=== PATIENT | male | born 1985 | race Hispanic/Latino ===

== ENCOUNTER 2016-08-03 17:09 | Emergency (ER) | payer MEDICAID ==
[2016-08-03 17:14] VITALS: BP 109/66
--- NOTE | 2016-08-03 17:58 | Emergency Department Report ---
ED Back Pain/Injury HPI - General Chief Complaint: Back Pain/Injury Stated Complaint: BACK PAIN Time Seen by Provider: 08/03/16 17:24 Source: patient Limitations: No Limitations - History of Present Illness Initial Comments: Patient comes in the ER today with complaints of left sided lower back pain after trying to pick an old type TV that was in the street in front of his house today. Patient states that he reached out to get it and lifted in a twisting motion and felt sudden pain in his left lower back. Patient states this happened approximately 4 hours ago and that the pain persists. Patient denies any loss of bowel or urine control. Patient denies any radiating pain into his legs. Patient states that he felt sudden pain and thinks that he pulled a muscle. Patient did take some ibuprofen prior to arrival with minimal improvements. MD Complaint: back pain -: Sudden - Related Data Previous Rx's Medication Instructions Recorded Last Taken Type Albuterol *Only Ed* [Proventil 2.5 mg IH Q4H PRN #1 box 03/03/15 Unknown Rx 0.5% NEBS] Cyclobenzaprine [Flexeril] 10 mg PO TID PRN #21 tablet 08/03/16 Unknown Rx Naproxen [Naprosyn TAB] 500 mg PO BID #20 tablet 08/03/16 Unknown Rx traMADol [Ultram] 50 mg PO Q4HR PRN #18 tablet 08/03/16 Unknown Rx Allergies Allergy/AdvReac Type Severity Reaction Status Date / Time No Known Allergies Allergy Unverified 03/03/15 14:53 ED Review of Systems ROS: Stated complaint: BACK PAIN Other details as noted in HPI Constitutional: denies: chills, fever Eyes: denies: eye pain, eye discharge, vision change ENT: denies: ear pain, throat pain Respiratory: denies: cough, shortness of breath, wheezing Cardiovascular: denies: chest pain, palpitations Endocrine: no symptoms reported Gastrointestinal: denies: abdominal pain, nausea, diarrhea Genitourinary: denies: urgency, dysuria Musculoskeletal: back pain, myalgia. denies: joint swelling, arthralgia Skin: denies: rash, lesions Neurological: denies: headache, weakness, paresthesias Psychiatric: denies: anxiety, depression Hematological/Lymphatic: denies: easy bleeding, easy bruising ED Past Medical Hx - Past Medical History Previous Medical History?: No Additional medical history: COPD-borderline - Surgical History Past Surgical History?: No - Social History Smoking Status: Never Smoker Substance Use Type: None - Medications Home Medications: Home Medications Medication Instructions Recorded Confirmed Last Taken Type Albuterol *Only Ed* [Proventil 2.5 mg IH Q4H PRN #1 box 03/03/15 Unknown Rx 0.5% NEBS] Cyclobenzaprine [Flexeril] 10 mg PO TID PRN #21 tablet 08/03/16 Unknown Rx Naproxen [Naprosyn TAB] 500 mg PO BID #20 tablet 08/03/16 Unknown Rx traMADol [Ultram] 50 mg PO Q4HR PRN #18 tablet 08/03/16 Unknown Rx ED Physical Exam - General Limitations: No Limitations General appearance: alert, in no apparent distress - Head Head exam: Present: atraumatic, normocephalic - Eye Eye exam: Present: normal appearance - ENT ENT exam: Present: mucous membranes moist - Neck Neck exam: Present: normal inspection - Respiratory Respiratory exam: Present: normal lung sounds bilaterally. Absent: respiratory distress - Cardiovascular Cardiovascular Exam: Present: regular rate, normal rhythm. Absent: systolic murmur, diastolic murmur, rubs, gallop - GI/Abdominal GI/Abdominal exam: Present: soft, normal bowel sounds. Absent: distended, tenderness - Rectal Rectal exam: Present: deferred - Extremities Exam Extremities exam: Present: normal inspection - Back Exam Back exam: Present: normal inspection, full ROM, tenderness (left lower muscle mass swelling as well as tenderness noted to paraspinal muscles), muscle spasm, paraspinal tenderness, other (negative straight leg raise bilaterally). Absent : CVA tenderness (R), CVA tenderness (L), vertebral tenderness - Neurological Exam Neurological exam: Present: alert, oriented X3, CN II-XII intact, normal gait, reflexes normal. Absent: motor sensory deficit - Psychiatric Psychiatric exam: Present: normal affect, normal mood - Skin Skin exam: Present: warm, dry, intact, normal color. Absent: rash ED Course Vital Signs 08/03/16 17:12 Temperature 98.1 F Pulse Rate 59 L Respiratory 16 Rate Blood Pressure 109/66 O2 Sat by Pulse 99 Oximetry ED Medical Decision Making - Radiology Data Radiology results: image reviewed interpreted by me: X-ray results interpreted by myself. No acute bone pathology noted. No acute fracture noted. Normal alignment of vertebral bodies. No loss of disc space noted. Slight leftward malrotation of lumbar vertebrae's consistent with potential muscle spasm. - Medical Decision Making Patient is nontoxic and hemodynamically stable. X-ray of lumbar spine ordered and reviewed with the patient in room. No acute bone pathology noted on x- rays. I believe patient a lumbar muscle resulting in spasming of his muscles. I will start patient on medications appropriately and have encouraged him to limit any strenuous repetitive activity over the next few days. I will give patient referral to orthopedics for further evaluation if symptoms fail to resolve or worsen. Patient stable for discharge and patient is in agreement with treatment plan. Critical care attestation.: If time is entered above; I have spent that time in minutes in the direct care of this critically ill patient, excluding procedure time. ED Disposition Clinical Impression: Low back pain, Lumbar strain Disposition: DISCHARGED TO HOME OR SELFCARE Is pt being admited?: No Does the pt Need Aspirin: No Condition: Good Instructions: Low Back Strain (ED) Prescriptions: Cyclobenzaprine [Flexeril] 10 mg PO TID PRN #21 tablet PRN Reason: Muscle Spasm Naproxen [Naprosyn TAB] 500 mg PO BID #20 tablet traMADol [Ultram] 50 mg PO Q4HR PRN #18 tablet PRN Reason: Pain Referrals: PRIMARY CARE, [Primary Care Provider] - 3-5 Days TORIN MCBRIDE MD [Staff Physician] - 3-5 Days Forms: Work/School Release Form(ED) Time of Disposition: 18:22
[2016-08-03] MEDS ORDERED: NORCO 5/325 PO ONE (18:21)
--- NOTE | 2016-08-03 18:37 | XRay Report ---
FINAL REPORT EXAM: XR SPINE LUMBOSACRAL 2-3V HISTORY: Pain, lifting injury TECHNIQUE: Lumbar spine three views 3 images PRIORS: None. FINDINGS: No gross abnormality is seen in the visualized paraspinal soft tissues. Vertebral body height is preserved. No acute fracture or anterolisthesis is identified. There is loss of height in the L5-S1 intervertebral disc space. IMPRESSION: 1. No acute fracture or anterolisthesis is identified.. 2. There is slight loss of intervertebral disc height at L5-S1.
== END 2016-08-03 18:33 | disposition home or self-care (01) ==
LOC: ED 17:09
DX: S39.012A Strain of muscle, fascia and tendon of lower back, initial encounter (principal); X58.XXXA Exposure to other specified factors, initial encounter; Y93.9 Activity, unspecified; Y92.9 Unspecified place or not applicable; Y99.9 Unspecified external cause status
CPT/HCPCS: 72100; 99283